=== PATIENT | female | born 1980 | race Caucasian/White ===

== ENCOUNTER → 2022-12-02 | Outpatient (CLI) | payer OTHER | LOC: M PLAIMG 13:36 | PROVIDERS: ATTEND Physician Assistant | DX: S93.491A Sprain of other ligament of right ankle, initial encounter (principal); W18.30XA Fall on same level, unspecified, initial encounter; Y92.009 Unspecified place in unspecified non-institutional (private) residence as the place of occurrence of the external cause ==

== ENCOUNTER 2023-12-23 20:28 | Emergency (ER) | payer OTHER ==
[~2023-12-23] VITALS: Ht 165.1 cm; Wt 61.1 kg
[2023-12-24 01:13] VITALS: BP 123/63; TEMP 97.3; O2SAT 100
== END 2023-12-24 01:15 | disposition home or self-care (01) ==
LOC: M ED 20:28
DX: S60.942A Unspecified superficial injury of right middle finger, initial encounter (principal); Y92.9 Unspecified place or not applicable; Y93.9 Activity, unspecified; Y99.9 Unspecified external cause status; Z88.0 Allergy status to penicillin

== ENCOUNTER 2024-06-28 10:57 | Day surgery (SDC) | payer OTHER ==
[~2024-06-28] VITALS: Ht 165.1 cm; Wt 63.4 kg
[~2024-06-28 10:57] MED LIST: CLEO300C2 PO; GABA-1172 PO; MIRT1TAB15 PO; POTA99CA2 PO; RIZA10TA2 PO; VITA100093 PO
[2024-06-28] MEDS ORDERED: LIDOCAINE 2% 100MG/5ML SDV (FOR ANES.) As Ordered ONE (12:05)
[2024-06-28] MEDS ORDERED: propofoL 200 MG/20 ML VIAL As Ordered ONE (12:05)
[2024-06-28 12:39] VITALS: TEMP 98
[2024-06-28 13:02] VITALS: BP 146/86; O2SAT 98
== END 2024-06-28 13:13 | disposition home or self-care (01) ==
LOC: M OPP 10:57
PROVIDERS: ATTEND Surgery
DX: Z12.11 Encounter for screening for malignant neoplasm of colon (principal); Q43.8 Other specified congenital malformations of intestine; Z80.0 Family history of malignant neoplasm of digestive organs; Z88.0 Allergy status to penicillin; Z79.899 Other long term (current) drug therapy

== ENCOUNTER 2024-12-06 11:09 | Emergency (ER) | payer OTHER ==
[~2024-12-06] VITALS: Ht 165.1 cm; Wt 62.0 kg
[2024-12-06] MEDS: KETOROLAC 30 MG/ML 1 ML VIAL IV ONE (15:31)
[2024-12-06] MEDS: NS (Normal Saline) 0.9% 1,000 ML IV ONE (15:32)
[2024-12-06 15:45] VITALS: BP 129/60; TEMP 96.9; O2SAT 99
== END 2024-12-06 16:19 | disposition home or self-care (01) ==
LOC: M ED 11:09
DX: G43.909 Migraine, unspecified, not intractable, without status migrainosus (principal); D64.9 Anemia, unspecified; Z88.0 Allergy status to penicillin; Z88.8 Allergy status to other drugs, medicaments and biological substances; Z79.899 Other long term (current) drug therapy
CPT/HCPCS: 70450; 96361; 96374; 96375; 99284; J1885; J2765